=== PATIENT | male | born 2000 | race Hispanic/Latino ===

== ENCOUNTER 2021-02-03 08:22 | Emergency (ER) | payer SELFPAY ==
--- OUTSIDE RECORDS SUMMARY | 2021-02-03 08:26 | XMS REPORT | Continuity of Care Document ---
:2000 Author Organization [facility] Address [address] [place] [address] Dr. Lopez [address] [place] [id number] Care Team Providers Name Role Phone Unavailable Unavailable Unavailable Problems This patient has no known problems. Allergies, Adverse Reactions, Alerts This patient has no known allergies or adverse reactions. Medications This patient has no known medications. Procedures This patient has no known procedures. Results This patient has no known results.
[2021-02-03] MEDS ORDERED: TETANUS & DIPHTHERIA TOX,ADULT 0.5 ML VIAL ONE (09:31)
[2021-02-03] MEDS ORDERED: NA CHLORIDE 0.9% 1,000 ML ONE (09:31)
[2021-02-03 09:35] LABS: Absolute Lymphocytes (CBC) 1.7 K/uL (0.7-4.9); Basophils % 0.3 % (0-1.3); Hematocrit 42.2 % (39.6-49.0); Lymphocytes % 12.6 % (15.3-44.8); MPV 8.9 fL (7.6-11.3); RBC Red Blood Cell Count 4.64 M/uL (4.33-5.43)
[2021-02-03] MEDS ORDERED: ONDANSETRON 4 MG/2 ML VIAL ONE (09:41)
[2021-02-03] MEDS ORDERED: MORPHINE 4 MG/ML SYR ONE (09:41)
[2021-02-03 09:43] LABS: BUN Blood Urea Nitrogen 8 mg/dL (7-18); Bicarbonate 27 mmol/L (21-32); Glucose Level 104 mg/dL (74-106); Sodium Level 137 mmol/L (136-145)
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
[2021-02-03 10:31] LABS: Blood Morphology Comment NOT SEEN (NOT SEEN); Platelet Estimate ADEQ
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
--- NOTE | 2021-02-03 10:46 | RAD REPORT ---
EXAM DESCRIPTION: RAD - Shoulder Right 2 View - 02/03/2021 10:26 am CLINICAL HISTORY: Right shoulder pain FINDINGS: The distal clavicle is elevated with respect to the acromion. The space between the clavic le and coracoid process is widened. These findings are compatible with a significant AC joint dislocation an injury to the coracoclavicul ar ligament. No fracture seen
--- NOTE | 2021-02-03 10:49 | RAD REPORT ---
EXAM DESCRIPTION: RAD - Wrist Left 3 View - 02/03/2021 10:26 am CLINICAL HISTORY: Left wrist pain status post injury FINDINGS: No fracture or dislocation is seen. If the patient continues to have symptoms to suggest an occult fracture then a followup plain film se komal in 7 days would be recommended
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
[2021-02-03] MEDS ORDERED: CEFAZOLIN/SWI 1gm 1 GM/10 ML SYR ONE (11:56)
[2021-02-03 12:36] VITALS: TEMP 98
[2021-02-03 12:40] VITALS: BP 124/79; O2SAT 97
== END 2021-02-03 12:25 | disposition home or self-care (01) ==
LOC: ER 08:22
DX: S43.101A Unspecified dislocation of right acromioclavicular joint, initial encounter (principal); S01.411A Laceration without foreign body of right cheek and temporomandibular area, initial encounter; S63.502A Unspecified sprain of left wrist, initial encounter; V29.9XXA Motorcycle rider (driver) (passenger) injured in unspecified traffic accident, initial encounter; Z23 Encounter for immunization
CPT/HCPCS: 36415; 70450; 70486; 71260; 72125; 74177; 76377; 80048; 85025; 90471; 90714; 96361; 96374; 96375; 99285; J0690; J2405; J7030; Q9967